=== PATIENT | female | born 1970 | race Caucasian/White ===

== ENCOUNTER 2017-01-02 02:14 | Emergency (ER) | payer BC ==
[~2017-01-02] VITALS: Ht 172.7 cm; Wt 81.6 kg
[~2017-01-02 02:14] MED LIST: ALPR.5T PO; LISD40CA3 PO
[2017-01-02] MEDS ORDERED: NS IV 1000 ML 1,000 ML IV ONE (02:21)
[2017-01-02 02:26] LABS: BASOPHILS # (AUTO) 0.1 10^3/uL (0.0-0.1); BASOPHILS % (AUTO) 0 % (0-10); EOSINOPHILS # (AUTO) 0.2 10^3/uL (0.0-0.3); EOSINOPHILS % (AUTO) 2 % (0-10); LYMPHOCYTES # (AUTO) 3.1 X 10^3 (1.0-4.0); LYMPHOCYTES % (AUTO) 22 % (12-44); MEAN CORPUSCULAR HEMOGLOBIN 30 PG (25-34); MEAN CORPUSCULAR HGB CONC 33 G/DL (32-36); MEAN CORPUSCULAR VOLUME 92 FL (80-99); MEAN PLATELET VOLUME 11.1 FL (7.4-10.4); MONOCYTES # (AUTO) 0.9 X 10^3 (0.0-1.0); MONOCYTES % (AUTO) 7 % (0-12); NEUTROPHILS # (AUTO) 9.6 X 10^3 (1.8-7.8); NEUTROPHILS % (AUTO) 70 % (42-75); PLATELET COUNT 288 10^3/uL (130-400); RED BLOOD COUNT 4.23 10^6/uL (4.35-5.85); RED CELL DISTRIBUTION WIDTH 13.9 % (10.0-14.5); WHITE BLOOD COUNT 13.8 10^3/uL (4.3-11.0)
--- NOTE | 2017-01-02 02:32 | ED Abdominal Pain ---
General Chief Complaint: Abdominal/GI Problems Stated Complaint: AB PAIN Nursing Triage Note: PT CAME IN BY AMBULANCE TO ED. PT COMPLAINS OF ABD PAIN SINCE YESTERDAY AND WOKE UP TONIGHT WITH SEVERE ABD PAIN. PT STATES SHE HAS BLOOD IN HER URINE. Sepsis Screen: No Definite Risk Source of Information: Patient, EMS Exam Limitations: No Limitations History of Present Illness Time Seen By Provider: 02:14 Initial Comments Here by EMS from home with report of epigastric abdominal pain with nausea. States she had onset of lower abdominal pain yesterday and had a urination that noted some blood. She felt frequency and lower abdominal pain and thought she had a urinary tract infection. Tonight she woke up with epigastric pain and nausea but no vomiting. Denies diarrhea. Reports that she has had some fever and chills subjectively since onset yesterday. Denies breathing problems or chest pain. Timing/Duration: 12-24 Hours, Changing Over Time Severity/Quality: Moderate, Aching Location: Epigastric, Suprapubic Radiation: No Radiation Activities at Onset: None Modifying Factors: Worsens With Movement, Improves With Resting Associated Symptoms: No Back Pain, No Chest Pain, Fever/Chills, Nausea/Vomiting , No Shortness of Air, No Swelling/Mass in Abdomen, No Weakness Allergies and Home Medications Allergies Coded Allergies: No Known Drug Allergies (Unverified , 09/17/12) Home Medications Alprazolam 0.5 Mg Tablet, 1 TAB PO TID PRN, (Reported) Lisdexamfetamine Dimesylate 40 Mg Capsule, 40 MG PO DAILY, (Reported) Review of Systems Constitutional: see HPI, chills, fever EENTM: No Symptoms Reported Respiratory: No Symptoms Reported, Denies Cough, Denies Shortness of Air Cardiovascular: No Symptoms Reported, Denies Chest Pain Gastrointestinal: Abdominal Pain, Denies Diarrhea, Nausea, Denies Vomiting Genitourinary: See HPI, Frequency, Hematuria, Pain Musculoskeletal: no symptoms reported Skin: no symptoms reported All Other Systems Reviewed Negative Unless Noted: Yes Past [id number] Hx Patient Social History Alcohol Use: Occasionally Uses Recreational Drug Use: No Smoking Status: Never a Smoker 2nd Hand Smoke Exposure: No Recent Foreign Travel: No Contact w/Someone Who Travel: No Recent Infectious Disease Expo: No Recent Hopitalizations: No Immunizations Up To Date Tetanus Booster (TDap): Unknown Date of Influenza Vaccine: May 14, 2011 Seasonal Allergies Seasonal Allergies: No Surgeries HX Surgeries: No Cardiovascular Hx Cardiac Disorders: No Neurological Hx Neurological Disorders: No Reproductive System Hx Reproductive Disorders: No Genitourinary Hx Genitourinary Disorders: Yes (UTI'S WHEN YOUNGER) Gastrointestinal Hx Gastrointestinal Disorders: No Musculoskeletal Hx Musculoskeletal Disorders: No Endocrine Hx Endocrine Disorders: No HEENT HX ENT Disorders: No Cancer Hx Cancer: No Psychosocial Hx Psychiatric Problems: Yes Behavioral Health Disorders: ADD/ADHD, Anxiety Integumentary HX Skin/Integumentary Disorder: No Blood Transfusions Hx Blood Disorders: No Adverse Reaction to a Blood Tr: No Reviewed Nursing Assessment Reviewed/Agree w Nursing PMH: Yes Family Medical History Significant Family History: No Pertinent Family Hx Physical Exam Vital Signs VS - Last 72 Hours, by Label 01/02/17 02:16 Temp 98.0 Pulse 80 Resp 20 B/P (MAP) 129/101 Pulse Ox 100 O2 Delivery Room Air Capillary Refill : Less Than 3 Seconds General Appearance: WD/WN, no apparent distress HEENT: PERRL/EOMI, pharynx normal Neck: full range of motion, supple Respiratory: lungs clear, normal breath sounds Cardiovascular: regular rate, rhythm, no murmur Peripheral Pulses: 2+ Dorsalis Pedis (R), 2+ Left Dors-Pedis (L), 2+ Radial Pulses (R), 2+ Radial Pulses (L) Gastrointestinal: soft, No guarding, No rebound, tenderness (mild) Extremities: non-tender, normal inspection Back: normal inspection, no CVA tenderness, no vertebral tenderness Neurologic/Psychiatric: alert, oriented x 3 Skin: normal color, warm/dry Focused Exam Lactic Acid Level Laboratory Tests Test 01/02/17 03:27 Lactic Acid Level 0.92 MMOL/L (0.50-2.00) Progress/Results/Core Measures Results/Orders Lab Results Laboratory Tests Test 01/02/17 02:17 01/02/17 02:54 01/02/17 03:27 Range/Units White Blood Count 13.8 H 4.3-11.0 10^3/uL Red Blood Count 4.23 L 4.35-5.85 10^6/uL Hemoglobin 12.7 11.5-16.0 G/DL Hematocrit 39 35-52 % Mean Corpuscular Volume 92 80-99 FL Mean Corpuscular Hemoglobin 30 25-34 PG Mean Corpuscular Hemoglobin Concent 33 32-36 G/DL Red Cell Distribution Width 13.9 10.0-14.5 % Platelet Count 288 130-400 10^3/uL Mean Platelet Volume 11.1 H 7.4-10.4 FL Neutrophils (%) (Auto) 70 42-75 % Lymphocytes (%) (Auto) 22 12-44 % Monocytes (%) (Auto) 7 0-12 % Eosinophils (%) (Auto) 2 0-10 % Basophils (%) (Auto) 0 0-10 % Neutrophils # (Auto) 9.6 H 1.8-7.8 X 10^3 Lymphocytes # (Auto) 3.1 1.0-4.0 X 10^3 Monocytes # (Auto) 0.9 0.0-1.0 X 10^3 Eosinophils # (Auto) 0.2 0.0-0.3 10^3/uL Basophils # (Auto) 0.1 0.0-0.1 10^3/uL Sodium Level 141 135-145 MMOL/L Potassium Level 3.3 L 3.6-5.0 MMOL/L Chloride Level 108 H 98-107 MMOL/L Carbon Dioxide Level 23 21-32 MMOL/L Anion Gap 10 5-14 MMOL/L Blood Urea Nitrogen 13 7-18 MG/DL Creatinine 0.85 0.60-1.30 MG/DL Estimat Glomerular Filtration Rate > 60 BUN/Creatinine Ratio 15 Glucose Level 113 H 70-105 MG/DL Calcium Level 8.9 8.5-10.1 MG/DL Total Bilirubin 0.7 0.1-1.0 MG/DL Aspartate Amino Transf (AST/SGOT) 36 H 5-34 U/L Alanine Aminotransferase (ALT/SGPT) 23 0-55 U/L Alkaline Phosphatase 83 40-136 U/L Total Protein 6.3 L 6.4-8.2 G/DL Albumin 3.7 3.2-4.5 G/DL Amylase Level 36 25-125 U/L Lipase 24 8-78 U/L Urine Color PAULINA H Urine Clarity VERY CLOUDY H Urine pH 6.5 5-9 Urine Specific [place] 1.020 1.016-1.022 Urine Protein 3+ H NEGATIVE Urine Glucose (UA) NEGATIVE NEGATIVE Urine Ketones 2+ H NEGATIVE Urine Nitrite POSITIVE H NEGATIVE Urine Bilirubin 3+ H NEGATIVE Urine Urobilinogen 8 H NORMAL MG/DL Urine Leukocyte Esterase 3+ H NEGATIVE Urine RBC (Auto) 4+ H NEGATIVE Urine RBC 10-25 H /HPF Urine WBC 50-100 H /HPF Urine Squamous Epithelial Cells 5-10 /HPF Urine Crystals NONE /LPF Urine Bacteria MODERATE H /HPF Urine Casts PRESENT /LPF Urine Coarse Granular Casts RARE H /LPF Urine Mucus SMALL H /LPF Urine Culture Indicated YES Lactic Acid Level 0.92 0.50-2.00 MMOL/L My Orders Orders - REEMA FULLER MD Amylase (01/02/17 02:21) Cbc With Automated Diff (01/02/17 02:21) Comprehensive Metabolic Panel (01/02/17 02:21) Lipase (01/02/17 02:21) Ua Culture If Indicated (01/02/17 02:21) Saline Lock/Iv-Start (01/02/17 02:21) Ns Iv 1000 Ml (Sodium Chloride 0.9%) (01/02/17 02:21) Urine Bedside (01/02/17 02:24) Urine Culture (01/02/17 02:54) Ct Abd/Pelvis Wo(Kidney Stone) (01/02/17 03:20) Lactic Acid Analyzer (01/02/17 03:20) Blood Culture (01/02/17 03:20) Ceftriaxone Injection (Rocephin Injectio (01/02/17 03:30) Medications Given in ED Current Medications Medications Dose Ordered Sig/Lilian Route Start Time Stop Time Status Last Admin Dose Admin Ceftriaxone Sodium 1000 mg/ Sodium Chloride 50 ml @ 100 mls/hr ONCE ONCE IV 01/02/17 03:30 01/02/17 04:00 DC 01/02/17 03:37 100 MLS/HR Sodium Chloride 1,000 ml @ 0 mls/hr Q0M ONCE IV 01/02/17 02:21 01/02/17 02:23 DC 01/02/17 02:27 1,000 MLS/HR Vital Signs/I&O Vital Sign - Last 12Hours 01/02/17 02:16 Temp 98.0 Pulse 80 Resp 20 B/P (MAP) 129/101 Pulse Ox 100 O2 Delivery Room Air Blood Pressure Mean: 110 Progress Note : Progress Note Seen and evaluated. IV, labs and UA ordered. UCG ordered. Normal saline 1 L bolus. Monitor patient. CT abdomen and pelvis ordered. Blood cultures and lactic acid ordered. Rocephin 1 g IV. Monitor patient. CT results noted. Patient doing a little better but has some epigastric discomfort. Toradol 30 mg IV. Discharged home with return precautions. Patient verbalize understanding instructions and agreement with plan. Diagnostic Imaging Diagonstic Imaging: CT Plain Films/CT/US/NM/MRI: abdomen, pelvis Comments Small amount of periportal edema is nonspecific. Normal appendix. Mild colonic diverticulosis. Anterior uterus is unremarkable. Likely 3 cm left ovarian cyst. No significant free pelvic fluid. Reviewed: Reviewed by Me Departure Impression Impression: Primary Impression: Urinary tract infection Qualified Codes: N30.01 - Acute cystitis with hematuria Additional Impression: Epigastric abdominal pain Disposition: HOME, SELF-CARE Condition: Stable Departure-Patient Inst. Decision time for Depature: 04:50 Referrals: STU GILL MD (PCP/Family) Primary Care Physician Patient Instructions: Urinary Tract Infection, Adult (DC), Acute Abdomen ( Belly Pain), Adult (DC) Add. Discharge Instructions: All discharge instructions reviewed with patient and/or family. Voiced understanding. You may take Tylenol 1000 mg every 8 hours as needed for pain. You may take ibuprofen 800 mg every 8 hours as needed for pain. Drink plenty of fluids. Follow-up with your DrIlya in a few days for recheck. Return for worse pain, fever , vomiting, weakness, breathing problems or other concerns as needed. Scripts Cephalexin (Cephalexin) 500 Mg Tablet 500 MG PO BID, #14 TAB 0 Refills Prov: REEMA FULLER MD 01/02/17 REEMA FULLER MD January 02, 2017 02:32
[2017-01-02 02:43] LABS: ALANINE AMINOTRANSFERASE 23 U/L (0-55); ALBUMIN 3.7 G/DL (3.2-4.5); AMYLASE 36 U/L (25-125); ANION GAP 10 MMOL/L (5-14); ASPARTATE AMINO TRANSFERASE 36 U/L (5-34); BILIRUBIN,TOTAL 0.7 MG/DL (0.1-1.0); BLOOD UREA NITROGEN 13 MG/DL (7-18); BUN/CREATININE RATIO 15; CALCIUM 8.9 MG/DL (8.5-10.1); CARBON DIOXIDE 23 MMOL/L (21-32); CHLORIDE 108 MMOL/L (98-107); CREATININE SERUM 0.85 MG/DL (0.60-1.30); GFR ESTIMATED > 60; GLUCOSE 113 MG/DL (70-105); LIPASE 24 U/L (8-78); POTASSIUM 3.3 MMOL/L (3.6-5.0); SODIUM 141 MMOL/L (135-145); TOTAL PROTEIN 6.3 G/DL (6.4-8.2)
[2017-01-02 03:02] LABS: KETONES,URINE 2+ (NEGATIVE); LEUKOCYTE ESTERASE ,URINE 3+ (NEGATIVE); NITRITE,URINE POSITIVE (NEGATIVE); PH,URINE 6.5 (5-9); PROTEIN,URINE 3+ (NEGATIVE); UROBILINOGEN,URINE 8 MG/DL (NORMAL)
[2017-01-02 03:16] LABS: BILIRUBIN,URINE 3+ (NEGATIVE)
[2017-01-02 03:17] LABS: WBC,URINE 50-100 /HPF
[2017-01-02] MEDS ORDERED: cefTRIAXone INJECTION 1,000 MG in NS (IVPB) 50 ML IV ONE (03:30)
[2017-01-02] MEDS ORDERED: KETOROLAC 30 MG/ML VIAL IVP STA (04:48)
[2017-01-02] MEDS ORDERED: CEPH500T PO (04:53)
[2017-01-02 05:05] VITALS: BP 128/89
--- NOTE | 2017-01-02 07:16 | Diagnostic Imaging Report ---
CLINICAL INDICATION: Patient with abdominal pain. No surgical history. EXAM: CT exam of the abdomen and pelvis is performed without IV or oral contrast using stone protocol. Coronal and sagittal reformatted images were created. COMPARISONS: None. FINDINGS: Visualized lung bases: Minimal parenchymal band involving the middle lobe. Liver: There is nonspecific mild periportal edema seen centrally. Otherwise, liver is unremarkable. Gallbladder: Unremarkable. Pancreas: Unremarkable as visualized. Spleen: Unremarkable as visualized. Adrenal glands: Unremarkable. Kidneys/ ureters: Unremarkable as visualized. Aorta: Unremarkable as visualized. Intraabdominal/ retroperitoneal contents: Unremarkable. Intestines: A few colonic diverticula are seen in the rectosigmoid junction region and descending colon. There is no CT evidence of diverticulitis. Appendix: Unremarkable. Bladder: Unremarkable as visualized. Pelvic organs: There is a roughly 3-cm circumscribed low-density rounded structure within the left adnexa region which may represent a cyst. There is minimal amount of free fluid in the pelvis. Uterus and adnexal regions are otherwise unremarkable. Extra abdominal/ pelvis regions: Unremarkable. Abdominal wall: Unremarkable. Bones: Unremarkable. IMPRESSION: 1: There is nonspecific mild periportal edema centrally within the liver. 2: Likely 3-cm left adnexal cyst. There is minimal free fluid in the pelvis. 3: Otherwise, CT scan of the abdomen and pelvis shows no acute abdominal or pelvic process. I agree with [facility] report. Dictated by: Dictated on workstation # [id number]
== END 2017-01-02 05:05 | disposition home or self-care (01) ==
LOC: EDUNIT# 02:14 → ER 02:15
DX: R10.13 Epigastric pain (principal); N30.01 Acute cystitis with hematuria
CPT/HCPCS: 36415; 74176; 80053; 81000; 82150; 83605; 83690; 84703; 85025; 87040; 87077; 87088; 96361; 96365; 96375

== ENCOUNTER → 2017-02-13 | Outpatient (CLI) | payer BC ==
[~2017-02-13] MED LIST changes: +CEPH500T PO
--- NOTE | 2017-02-13 13:46 | Diagnostic Imaging Report ---
EXAMINATION: Upright and supine views of the abdomen. INDICATION: Abdominal pain. FINDINGS: There is no pneumoperitoneum. No dilated bowel loops to suggest an obstruction. A fluid level is seen in the stomach, nonspecific. There is a moderate amount of fecal material in the colon and rectum. No suspicious calcifications are seen. Calcifications in the pelvis are probably phleboliths. IMPRESSION: No pneumoperitoneum or bowel obstruction. Dictated by: Dictated on workstation # [id number]
[2017-02-13 13:50] LABS: MEAN PLATELET VOLUME 10.6 FL (7.4-10.4); RED BLOOD COUNT 4.31 10^6/uL (4.35-5.85); RED CELL DISTRIBUTION WIDTH 13.6 % (10.0-14.5); WHITE BLOOD COUNT 14.9 10^3/uL (4.3-11.0)
== END ==
LOC: RAD 13:14
PROVIDERS: ATTEND Nurse Practitioner Family
DX: R10.84 Generalized abdominal pain (principal)
CPT/HCPCS: 36415; 74020; 85027

== ENCOUNTER 2021-08-23 08:44 | Outpatient (CLI) | payer BC ==
[~2021-08-23] VITALS: Ht 172.7 cm; Wt 99.7 kg
[2021-08-23 09:24] VITALS: BP 138/92
[2021-08-23] MEDS ORDERED: ONDANSETRON 4 MG/2 ML (SDV) Z0FRAN IV PRN (09:30)
[2021-08-23] MEDS ORDERED: diphenhydrAMINE 50 MG/ML INJ (BENADRYL) IV PRN (09:30)
[2021-08-23] MEDS ORDERED: EPINEPHrine INJECTION 1 MG/ML AMP IM PRN (09:30)
[2021-08-23] MEDS ORDERED: ACETAMINOPHEN 500 MG TAB (TYLENOL) PO PRN (09:30)
[2021-08-23] MEDS ORDERED: CASIRIVIMAB/IMDEVIMAB 1,200 MG in NS (IVPB) 250 ML IV ONE (09:30)
[2021-08-23 10:55] VITALS: BP 132/94
== END 2021-08-23 11:10 ==
LOC: INFUSION 08:44
PROVIDERS: ATTEND Nurse Practitioner Family
DX: U07.1 COVID-19 (principal); E66.9 Obesity, unspecified